=== PATIENT | female | born 1985 | race Caucasian/White ===

== ENCOUNTER 2017-01-07 20:00 | Emergency (ER) | payer OTHER ==
[2017-01-07 21:50] LABS: URINE BILIRUBIN NEGATIVE (NEGATIVE); URINE BLOOD NEGATIVE (NEGATIVE); URINE GLUCOSE (UA) NEGATIVE (NEGATIVE); URINE LEUKOCYTE ESTERASE 1+ (NEGATIVE); URINE NITRITE NEGATIVE (NEGATIVE); URINE PROTEIN NEGATIVE (NEGATIVE); URINE UROBILINOGEN NORMAL (0-1 mg/dl)
[2017-01-07 21:57] LABS: URINE APPEARANCE CLEAR; URINE COLOR YELLOW
[2017-01-07 22:10] LABS: URINE RBC 0 /hpf
[2017-01-07 22:11] LABS: AMPHETAMINES/METHAMPHETAMINES POSITIVE (NEGATIVE); COCAINE NEGATIVE (NEGATIVE); MARIJUANA NEGATIVE (NEGATIVE); METHADONE NEGATIVE (NEGATIVE); OPIATES POSITIVE (NEGATIVE); TRICYCLIC ANTIDEPRESSANTS NEGATIVE (NEGATIVE); URINE AMORPHOUS SEDIMENT FEW; URINE BACTERIA 1+; URINE MUCUS 1+
--- NOTE | 2017-01-08 08:03 | RAD ---
ANKLE-RIGHT 3 VIEW COMPARISON: None HISTORY: Twisted right ankle 01/06/2017. Lateral ankle pain. FINDINGS Views: Right ankle AP, mortise, lateral. Bones: Nondisplaced fracture of the right fibula lateral malleolus at the syndesmosis level (Willard B). Joints: Symmetric alignment of the ankle joint. Normal width of the subtalar joint. Soft tissues: Lateral soft tissue swelling at the right ankle. IMPRESSION: 1. Nondisplaced fracture of the right fibula lateral malleolus (Willard B).
--- NOTE | 2017-01-08 08:09 | RAD ---
LOWER LEG RIGHT COMPARISON: None. HISTORY: Ground-level fall 01/06/2017. Pain, mid right tibia. FINDINGS: Views: Nondisplaced fracture, distal right fibula. No fracture of the tibia, distal femur, patella, or talus. Bones: Normal. Joints: Normal. Soft tissues: Normal. IMPRESSION: 1. Nondisplaced fracture, distal right fibula. No tibia fracture.
== END 2017-01-07 22:57 | disposition home or self-care (01) ==
LOC: ED 20:00
DX: S82.831A Other fracture of upper and lower end of right fibula, initial encounter for closed fracture (principal); F11.90 Opioid use, unspecified, uncomplicated; F15.90 Other stimulant use, unspecified, uncomplicated; W01.0XXA Fall on same level from slipping, tripping and stumbling without subsequent striking against object, initial encounter; Y93.01 Activity, walking, marching and hiking; Y92.89 Other specified places as the place of occurrence of the external cause